=== PATIENT | female | born 1990 ===

== ENCOUNTER 2021-04-12 15:46 | Emergency (ER) | payer OTHER, SELFPAY ==
[2021-04-12 16:07] VITALS: BP 127/83; PULSE 71; RESP 19; TEMP 36.8; O2SAT 98; BMI 24.7
--- NOTE | 2021-04-12 16:09 | ED.GENADULT ---
HPI - General Adult General Chief complaint: Nausea/Vomiting/Diarrhea Stated complaint: thinks food poisoning Time Seen by Provider: 04/12/21 16:01 History of Present Illness HPI narrative: 30-year-old woman with a history of hypertension currently on lisinopril and hydrochlorothiazide presents with 48 hours of nausea and vomiting. It has progressed to the point where she is unable to keep fluids down at all today. Two nights ago, when symptoms started she did note that she was dizzy and her blood pressure was slightly low. She does not describe any new foods and notes that her has essentially eaten all the same food she has and he has not gotten ill. The she said the stool would not overt diarrhea. Last week she reports some congestion, sneeze, cough had a negative COVID test and was definitely improved or by this weekend. She notes that she has had persistent nausea over the last number of months and has a follow-up appointment with her nail kegger to review her blood pressure medications to see if they contributing. She typically seeks medical care at the [facility]. She reports regular menstrual cycles and regularly uses condoms. She denies any palpitations, chest pain, dyspnea, rashes, headaches, paresthesias or numbness. Related Data Home Medications Medication Instructions Recorded Confirmed hydrochlorothiazide 25 mg PO DAILY 04/12/21 04/12/21 lisinopril 10 mg PO DAILY 04/12/21 04/12/21 Previous Rx's Medication Instructions Recorded ondansetron HCl [Zofran] 4 mg PO Q8H PRN #14 tab 04/12/21 Allergies Allergy/AdvReac Type Severity Reaction Status Date / Time Iodinated Contrast Media Allergy Unknown ITCHING Verified 04/12/21 16:05 Review of Systems Review of Systems Narrative: Remainder of complete review of systems is otherwise unremarkable except for that included in the HPI. Patient History Social History Smoking Status: Never smoker Exam Narrative Exam Narrative: General: Fatigued appearing but in no acute distress. Able to give a complete and coherent history. Well-nourished well-developed HEENT: Moist mucous membranes, normal sclera with reactive pupils, Neck: supple Respiratory: Lungs are clear to auscultation, no wheezing no rales no rhonchi. Full and symmetrical air movement Cardiac: Regular rate and rhythm no murmurs no bruits Abdomen: Soft, no specific tenderness, no rebound or guarding,, good bowel tones, no flank pain Skin: Warm and dry, no rashes Neurologic: Grossly neurologically intact with no obvious asymmetries or abnormalities Extremities: No trauma, well perfused Psych: Cooperative, appropriate insight and affect Initial Vital Signs Initial Vital Signs: Vital Signs Temperature 98.2 F 04/12/21 16:07 Pulse Rate 71 04/12/21 16:07 Respiratory Rate 19 04/12/21 16:07 Blood Pressure 127/83 04/12/21 16:07 Pulse Oximetry 98 04/12/21 16:07 Course Orders Ordered: ED Orders 04/12/21 16:15 Complete Blood Count AUTO DIFF Stat Comprehensive Metabolic Panel Stat Lipase Stat Magnesium Stat Discontinued Medications Sodium Chloride (Normal Saline 0.9%) 1,000 mls @ 1,000 mls/hr IV BOLUS ONE Stop: 04/12/21 17:12 Last Infusion: 04/12/21 17:34 Dose: 0 mls/hr Documented by: Admin: 04/12/21 16:31 Dose: 1,000 mls/hr Documented by: AMY Ondansetron HCl (Ondansetron 4 Mg/2 Ml Inj) 4 mg IV NOW ONE Stop: 04/12/21 16:14 Last Admin: 04/12/21 16:30 Dose: 4 mg Documented by: AMY Vital Signs Vital signs: Vital Signs - 8 hr 04/12/21 16:07 Temperature 98.2 F Pulse Rate 71 Respiratory Rate 19 Blood Pressure 127/83 Pulse Oximetry 98 Medical Decision Making Medical Records Medical records reviewed: Yes I reviewed the patient's medical records. Lab Data Lab results reviewed: Yes I reviewed the patient's lab results. Result diagrams: 04/12/21 16:15 04/12/21 16:15 Labs: Lab Results 04/12/21 04/12/21 Range/Units 16:15 16:15 WBC 6.9 (4.5-11.0) X10^3/uL RBC 3.99 L (4.0-5.2) X10^6/uL Hgb 10.6 L (12.0-16.0) g/dL Hct 32.7 L (36-46) % MCV 81.9 (80-100) fL MCH 26.6 (26-34) PG MCHC 32.4 (30-36) % RDW 15.6 H (11.6-14.8) % Plt Count 279 (150-400) X10^3/uL Neut % (Auto) 80.3 H (50-75) % Lymph % (Auto) 14.6 L (25-40) % [place] % (Auto) 3.4 (3-14) % Eos % (Auto) 1.3 L (2-4) % Baso % (Auto) 0.4 (0-2) % Neut # (Auto) 5500 (2704-1175) /uL Lymph # (Auto) 1000 L (7410-9934) /uL [place] # (Auto) 200 (0-900) /uL Eos # (Auto) 100 (0-450) /uL Baso # (Auto) 0 (0-100) /uL Sodium 135 L (137-145) mmol/L Potassium 3.5 (3.4-5.1) mmol/L Chloride 98 (98-107) mmol/L Carbon Dioxide 26 (22-32) mmol/L BUN 11 (7-17) mg/dL Creatinine 0.55 (0.52-1.04) mg/dL Estimated GFR > 60.0 (>60) mL/min BUN/Creatinine Ratio 20.0 (6-22) Glucose 120 H (70-100) mg/dL Calcium 9.6 (8.4-10.2) mg/dL Magnesium 1.6 (1.6-2.3) mg/dL Total Bilirubin 0.4 (0.2-1.3) mg/dL AST 43 H (14-36) IU/L ALT 22 (<35) IU/L Alkaline Phosphatase 115 (38-126) U/L Total Protein 8.1 (6.3-8.2) g/dL Albumin 4.6 (3.5-5.0) g/dL Globulin 3.5 (1.7-4.1) g/dL Albumin/Globulin Ratio 1.3 (1.0-2.8) Lipase 165 (23-300) U/L Point of Care Testing Test Results Negative Urine Dip Bedside Urine Glucose Negative Bedside Urine Bilirubin - Negative Bedside Urine Ketone - Negative Urine Specific [place] 1.015 Bedside Urine Occult Blood - Negative Bedside Urine pH 7.5 Bedside Urine Urobilinogen - Negative Bedside Urine Nitrite - Negative Bedside Urine Leukocytes - Negative Esterase Point of care testing: Point of Care Testing Test Results Negative Urine Dip Bedside Urine Glucose Negative Bedside Urine Bilirubin - Negative Bedside Urine Ketone - Negative Urine Specific [place] 1.015 Bedside Urine Occult Blood - Negative Bedside Urine pH 7.5 Bedside Urine Urobilinogen - Negative Bedside Urine Nitrite - Negative Bedside Urine Leukocytes - Negative Esterase MDM Narrative Medical decision making narrative: 30-year-old woman presents with nausea vomiting. After IV fluid and Zofran she is feeling significantly and keeping liquids down. There is no evidence of intra-abdominal infection or appendicitis, no UTI, she is not , no evidence of sepsis or pyelonephritis. As the symptoms have been ongoing for a couple of days and she is having minimal diarrhea I suspect that this is more likely viral rather than food poisoning. Findings are shared with patient and her . Questions are answered. She is safe for home discharge Discharge Plan Departure Patient Disposition: Home Clinical Impression: Acute vomiting Instructions: DI for Vomiting -- Adult Activity Restrictions/Additional Instructions: Thank you for coming in today I am glad your feeling better after the IV fluid and the nausea medicine. Your blood work was entirely reassuring with no evidence of appendicitis, kidney infection, or anything that might require surgical attention today. I am going to give you a prescription for Zofran to use as needed for nausea over the next couple of days. If things change or worsen feel free to return to the emergency department Prescriptions: New ondansetron HCl [Zofran] 4 mg tablet 4 mg PO Q8H PRN (Reason: nausea and vomiting) Qty: 14 RF: 0 No Action hydrochlorothiazide 25 mg tablet 25 mg PO DAILY RF: 0 lisinopril 10 mg tablet 10 mg PO DAILY RF: 0
[2021-04-12 16:21] LABS: Add Manual Diff / Slide Review NO; Basophils Absolute Auto 0 /uL (0-100); Basophils Percent Auto 0.4 % (0-2); Eosinophils Absolute Auto 100 /uL (0-450); Eosinophils Percent Auto 1.3 % (2-4); Hematocrit 32.7 % (36-46); Hemoglobin 10.6 g/dL (12.0-16.0); Lymphocytes Absolute Auto 1000 /uL (1100-4500); Lymphocytes Percent Auto 14.6 % (25-40); Mean Corpuscular HGB Conc 32.4 % (30-36); Mean Corpuscular Hemoglobin 26.6 PG (26-34); Mean Corpuscular Volume 81.9 fL (80-100); Monocytes Absolute Auto 200 /uL (0-900); Monocytes Percent Auto 3.4 % (3-14); Neutrophils Absolute Auto 5500 /uL (1500-7000); Neutrophils Percent Auto 80.3 % (50-75); Platelet Count 279 X10^3/uL (150-400); Red Blood Cell Count 3.99 X10^6/uL (4.0-5.2); Red Cell Distribution Width 15.6 % (11.6-14.8); White Blood Cell Count 6.9 X10^3/uL (4.5-11.0)
[2021-04-12] MEDS: ONDANSETRON 4 MG/2 ML INJ IV (16:30)
[2021-04-12] MEDS: SODIUM CHLORIDE 0.9% 1,000 ML 1000 ML IV (16:31)
[2021-04-12 16:39] LABS: HEMOLYSIS < 15 (0-50); Potassium 3.5 mmol/L (3.4-5.1)
[2021-04-12 16:40] LABS: Alanine Aminotransferase 22 IU/L (<35); Albumin 4.6 g/dL (3.5-5.0); Albumin Globulin Ratio 1.3 (1.0-2.8); Alkaline Phosphatase 115 U/L (38-126); Aspartate Aminotransferase 43 IU/L (14-36); Bilirubin Total 0.4 mg/dL (0.2-1.3); Blood Urea Nitrogen 11 mg/dL (7-17); Calcium 9.6 mg/dL (8.4-10.2); Carbon Dioxide 26 mmol/L (22-32); Chloride 98 mmol/L (98-107); Estimated Glomerular Filt Rate > 60.0 mL/min (>60); Globulin 3.5 g/dL (1.7-4.1); Glucose 120 mg/dL (70-100); Lipase 165 U/L (23-300); Magnesium 1.6 mg/dL (1.6-2.3); Sodium 135 mmol/L (137-145); Total Protein 8.1 g/dL (6.3-8.2)
[2021-04-12 18:58] VITALS: BP 127/79; PULSE 74; RESP 16; TEMP 36.7; O2SAT 99
== END 2021-04-12 19:00 | disposition home or self-care (01) ==
PROVIDERS: Emergency Provider Emergency Medicine
DX: R11.2 Nausea with vomiting, unspecified (principal)
CPT/HCPCS: 36415; 80053; 81003; 81025; 83690; 83735; 85025; 96361; 96374; 99284; J2405

== ENCOUNTER → 2021-12-11 11:52 | Outpatient (CLI) | payer OTHER, SELFPAY ==
[2021-12-11 14:06] LABS: COVID19 -Nasal RAPID Negative (Negative)
== END ==
PROVIDERS: Visit Provider Obstetrics & Gynecology
DX: Z01.812 Encounter for preprocedural laboratory examination (principal); Z20.822 Contact with and (suspected) exposure to COVID-19
CPT/HCPCS: 87635

== ENCOUNTER 2021-12-13 13:17 | Day surgery (SDC) | payer OTHER, SELFPAY ==
[2021-12-07 08:11] VITALS: BMI 24.3
[2021-12-13] VITALS (7 sets, daily range): BP systolic 114–139; BP diastolic 68–93; PULSE 58–84; RESP 14–18; TEMP 36.6; O2SAT 99–100; BMI 24.3
--- NOTE | 2021-12-13 | PATH_ITS ---
[facility] Accession Number: [id number] No. of containers..01 Tissue . 01 Material submitted: . endometrium - ENDOMETRIAL POLYP FRAGMENTS . 02 Diagnosis: A. Endometrial Polyp, Polypectomy: Late proliferative/early secretory phase endometrium in association with endometrial polyp(s) and with features of breakdown. No evidence of endometrioid intraepithelial neoplasia or malignancy. [facility] 12/17/2021 1648 Local . 02 Electronically signed: . Amita Reyna MD, Pathologist NPI- [id number] . 01 Gross description: . ENDOMETRIAL POLYP FRAGMENTS: Received in formalin are multiple fragment of magallanes soft tissue measuring 2.0 x 1.5 x 0.3 cm in aggregate. Specimen is submitted in its entirety in 1 cassette. /ANGIE 12/14/2021 1844 Local . 02 Pathologist provided ICD-10: N84.0 . 02 CPT . 198598 Specimen Comment: A courtesy copy of this report has been sent to [facility] Performed at: 01 [facility] [address] [facility], [place], [place] [id number] MD Mike Ewing MD Phone: [phone] Performed at: 02 [facility] [address] [place], [place] [id number] MD Jeannine Buchanan MD Phone: [phone]
[2021-12-13] MEDS: SCOPOLAMINE 1 PATCH TOP (13:21)
[2021-12-13] MEDS: GABAPENTIN 300 MG CAPSULE PO (13:23)
[2021-12-13] MEDS: ACETAMINOPHEN 325 MG TABLET 975 MG PO (13:23)
[2021-12-13] MEDS: LACTATED RINGERS 1,000 ML 42 ML IV (13:25)
--- NOTE | 2021-12-13 13:52 | PM.PREOP ---
Pre-operative Note COVID-19 COVID-19 status: Negative Result date/Date tested (Pos, Neg/Pending): 12/12/21 Criteria for continued procedure: Non-surgical alternatives not available or appropriate per current SOC Interval Note History & Physical reviewed/Exam performed by Physician: Yes Changes to H&P: No
--- NOTE | 2021-12-13 14:45 | P.OP_ITS ---
Operative Date/Time/Diagnoses Date of procedure: 12/13/21 Time of procedure: 15:00 Pre-op diagnosis: Abnormal uterine bleeding due to endometrial polyp Post-op diagnosis: same Procedure & Clinicians Procedure: Procedures Operation Date: 12/13/21 13:45 <No data on this case meets the specified criteria> Indications: Ana Maria is a 31 yo G0 LMP started today who presented in referral from [facility] for evaluation of thickened endometrium with endometrial polyp noted on pelvic ultrasound.? The patient had menarche at age 14 has had regular periods throughout her adult life.? Typically her periods last only about 4 days with 1 of those days heavy in the wrist arm minimal insofar as flow and/or cramping.? Since the summer however she has been having regular periods but those.? This are lasting at least 5-7 days with intermenstrual bleeding and severe cramping/pain with her menses.? She is not using any contraception currently as she was taken off control pills due to elevated blood pressures.? Pap smears have all been normal and her most recent Pap is within the last year.? Review of records sent from [facility] show a 4.8 x 1.9 x 1.9 polypoid mass within the endometrial cavity consistent with endometrial polyp with no other significant abnormalities noted on the pelvic ultrasound.? After considering all options, the patient has elected to proceed with hysteroscopic resection of the endometrial polyp along with dilation and curettage of the uterus scheduled to be performed on 12/13/2021 in the main OR of [facility].? She presents today for her scheduled surgery. Surgeon: Saul Eastman Anesthesia Type: General Operative Notes Findings: Large, broad-based polyp with no atypical features arising from the left lateral endometrial surface. The polyp was removed in its entirety and at the completion of the procedure, the endometrial cavity was essentially normal in its configuration. Both tubal ostia were seen and there were no other focal lesions within the endometrial cavity therefore curettage not performed. Closure Type: not applicable Specimen(s): endometrial polyp (Fragments submitted as aggregate specimen) Estimated blood loss (mL): 25 Blood products transfused: none Procedure in detail: With the patient under satisfactory general anesthesia in the modified dorsal lithotomy position, the perineum vagina and lower abdomen were prepped and draped in the usual fashion for hysteroscopy. A pre-surgical safety time-out was then taken in accordance with [facility] Main OR protocols. A speculum was then placed in the vagina and the cervix visualized without difficulty. The anterior lip of the cervix was then grasped with a single-tooth tenaculum and the of the endocervical canal was then dilated to 8-9 mm. A hysteroscope was then introduced into the endometrial cavity with the findings as noted above. Saline was used as the initial distension medium but was switched to sorbitol with the introduction of a resectoscope into the endometrial cavity following removal of the hysteroscope. Using a loop electrode, the endometrial polyp was then excised down to its base and at the completion of the resection, all of the endometrial polyp had been resected and removed. The endometrial cavity was then carefully inspected for additional abnormalities and there were none seen. There was no significant bleeding following the resection of the polyp. The resectoscope was then removed from the uterine cavity and the tenaculum removed from the anterior lip of the cervix. Silver nitrate was applied to the puncture sites on the anterior lip of the cervix to affect complete hemostasis thereof. The speculum was then removed from the vagina and the patient was awakened from anesthesia having tolerated the procedure well. She was then transferred to the PACU for a period of observation and recovery in good condition. Complications: none Post-operative Condition: stable Disposition: PACU Plan for aftercare: Routine postoperative care. Patient will be followed up in 2 weeks or as needed.
--- NOTE | 2021-12-13 15:01 | SUR.OPER ---
Lithotomy on padded OR bed, head on pillow, arms secured on padded arm boards at <90 degrees abduction. Legs secured in padded yellow fins stirrups.
== END 2021-12-13 16:20 | disposition home or self-care (01) ==
PROVIDERS: PCP Student in an Organized Health Care Education/Training Program; Referring Provider Obstetrics & Gynecology; Visit Provider Obstetrics & Gynecology
PROC: 0UDB8ZZ Extraction of Endometrium, Via Natural or Artificial Opening Endoscopic (ICD-10-PCS; CPT 58558; principal; 2021-12-13 13:45)
DX: N84.0 Polyp of corpus uteri (principal); I10 Essential (primary) hypertension
CPT/HCPCS: 58558; J1100; J1885; J2250; J2405; J2704